=== PATIENT | female | born 1955 | race Caucasian/White ===

== ENCOUNTER 2017-09-09 13:04 | Day surgery (SDC) | payer OTHER ==
[2017-09-09] MEDS ORDERED: PROPOFOL 40 ML (15:48)
[2017-09-09] MEDS ORDERED: PROPOFOL 20 ML (16:48)
== END 2017-09-09 18:32 | disposition home or self-care (01) ==
LOC: GIL 13:04
DX: K64.8 Other hemorrhoids (principal); K22.2 Esophageal obstruction; K29.70 Gastritis, unspecified, without bleeding; Z86.010 Personal history of colon polyps; I10 Essential (primary) hypertension
CPT/HCPCS: 43239; 88305